=== PATIENT | female | born 1965 | race Caucasian/White ===

== ENCOUNTER → 2023-05-16 11:07 | Outpatient (REF) | payer BC, SELFPAY ==
[2023-05-16 12:26] LABS: % Basophils 1.3 % (0-2); % Eosinophils 1.2 % (0-6); % Immature Granulocytes 0.3 % (0-0.5); % Lymphocytes 31.8 % (20.5-51.1); % Monocytes 5.6 % (1.7-9.3); % Neutrophils 59.8 % (42.2-75.2); Absolute Basophils 0.1 10^3/uL (0-0.2); Absolute Eosinophils 0.1 10^3/uL (0-0.7); Absolute Lymphocytes 1.9 10^3/uL (1.2-3.4); Absolute Monocytes 0.3 10^3/uL (0.1-0.6); Absolute Neutrophils 3.6 10^3/uL (1.4-6.5); Hematocrit 40.7 % (37.0-47.0); Hemoglobin 14.1 g/dL (12.0-16.0); Mean Corp Hgb Conc. 34.6 g/dL (33.0-37.0); Mean Corpuscular Hgb 32.1 pg (27.0-31.0); Mean Corpuscular Volume 92.7 fL (81.0-99.0); Mean Platelet Volume 10.7 fL (7.4-10.4); Nucleated Red Blood Cells % 0 %; Platelet Count 304 10^3/uL (130-400); Red Blood Cell Count 4.39 10^6/uL (4.20-5.40); Red Cell Dist. Width 12.5 % (11.5-14.5)
[2023-05-16 13:17] LABS: ALT (SGPT) 20 U/L (0-35); AST (SGOT) 37 U/L (14-36); Alkaline Phosphatase 81 U/L (38-126); Blood Urea Nitrogen 13 mg/dl (7-17); Calcium 10.2 mg/dl (8.4-10.2); Carbon Dioxide 30 mmol/L (22-30); Chloride 102 mmol/L (98-107); Glucose 93 mg/dl (70-99); Potassium 4.5 mmol/L (3.5-5.1); Sodium 138 mmol/L (135-145); Total Protein 7.8 g/dl (6.3-8.2); eGFR > 60.00
[2023-05-16 13:35] LABS: Free T4 0.85 ng/dl (0.78-2.19); Prolactin 15.9 ng/ml (3.0-18.6); Vitamin D, 25-OH*** 49.4 ng/mL (30-80)
[2023-05-16 13:48] LABS: TSH 2.05 uIU/ml (0.47-4.68)
[2023-05-16 14:09] LABS: Intact PTH 50.3 pg/ml (13.6-85.8)
== END ==
LOC: REG 11:07
PROVIDERS: ATTENDING PHYSICIAN Internal Medicine Endocrinology, Diabetes & Metabolism; FAMILY PHYSICIAN Family Medicine
DX: M81.0 Age-related osteoporosis without current pathological fracture (principal); E55.9 Vitamin D deficiency, unspecified
CPT/HCPCS: 36415; 80053; 82306; 83970; 84146; 84439; 84443; 85025

== ENCOUNTER → 2023-08-29 08:09 | Outpatient (REF) | payer BC, SELFPAY ==
[2023-08-29 09:09] LABS: Microalbumin, Random Urine <0.6 mg/dl (0.6-1.7)
[2023-08-29 09:16] LABS: Blood Urea Nitrogen 16 mg/dl (7-17); Calcium 10.5 mg/dl (8.4-10.2); Carbon Dioxide 28 mmol/L (22-30); Chloride 102 mmol/L (98-107); Glucose 92 mg/dl (70-99); Potassium 4.3 mmol/L (3.5-5.1); Sodium 143 mmol/L (135-145); eGFR > 60.00
== END ==
LOC: REG 08:09
PROVIDERS: ATTENDING PHYSICIAN Specialist; FAMILY PHYSICIAN Family Medicine
DX: N26.1 Atrophy of kidney (terminal) (principal)
CPT/HCPCS: 36415; 80048; 82043; 82570

== ENCOUNTER → 2023-09-05 10:12 | Outpatient (REF) | payer BC, SELFPAY | LOC: RAD 10:12 | PROVIDERS: ATTENDING PHYSICIAN Specialist; FAMILY PHYSICIAN Family Medicine | DX: N26.1 Atrophy of kidney (terminal) (principal) | CPT/HCPCS: 76770 ==